=== PATIENT | male | born 1980 | race Two or more races ===

== ENCOUNTER 2022-02-08 18:46 | Emergency (ER) | payer OTHER ==
[~2022-02-08] VITALS: Ht 185.4 cm; Wt 85.0 kg
[2022-02-08 22:15] VITALS: BP 122/64
== END 2022-02-08 22:31 | disposition home or self-care (01) ==
LOC: ER 18:52
DX: F41.1 Generalized anxiety disorder (principal); F32.9 Major depressive disorder, single episode, unspecified

== ENCOUNTER 2022-10-08 17:18 | Emergency (ER) | payer OTHER ==
[~2022-10-08] VITALS: Ht 185.4 cm; Wt 65.3 kg
[2022-10-08 18:17] VITALS: BP 106/58; PULSE 76; RESP 16; TEMP 98.9
[2022-10-08 19:24] VITALS: O2SAT 99
[2022-10-08] MEDS ORDERED: LORazepam 0.5 MG TAB PO ONE (20:00)
== END 2022-10-08 20:47 | disposition home or self-care (01) ==
LOC: ER 17:18
DX: F41.9 Anxiety disorder, unspecified (principal); F32.9 Major depressive disorder, single episode, unspecified